=== PATIENT | female | born 1990 | race Caucasian/White ===

== ENCOUNTER 2022-09-05 07:53 | Emergency (ER) | payer OTHER ==
[~2022-09-05] VITALS: Ht 167.6 cm; Wt 64.0 kg
[2022-09-05 08:03] VITALS: O2SAT 100
[2022-09-05] MEDS ORDERED: TETANUS, DIPHTHERIA, PERTUSSIS VAC/PF 0.5ML (>10YR OLD) IM ONE ×2 (08:30→10:15)
[2022-09-05] MEDS ORDERED: BACITRACIN ZINC OINT UDPKT TOP ONE (08:30)
[2022-09-05] MEDS ORDERED: LIDOCAINE HCL/PF 1% 10 MG/ML 5ML VIAL INFIL ONE (08:30)
[2022-09-05] MEDS ORDERED: BO1 TP (09:39)
[2022-09-05 11:15] VITALS: BP 130/89; PULSE 87; RESP 18; TEMP 98.2
[2022-09-05] MEDS ORDERED: ACETAMINOPHEN 325MG TABLET PO ONE (11:15)
== END 2022-09-05 11:16 | disposition home or self-care (01) ==
LOC: ER 09:05
DX: S01.511A Laceration without foreign body of lip, initial encounter (principal); V49.9XXA Car occupant (driver) (passenger) injured in unspecified traffic accident, initial encounter; Y93.89 Activity, other specified; Y92.89 Other specified places as the place of occurrence of the external cause; Y99.8 Other external cause status
CPT/HCPCS: 81025; 90715; 12013; 90471; 99283; J3490; Z7610 ×2